=== PATIENT | female | born 1965 | race Caucasian/White ===

== ENCOUNTER 2020-10-17 06:55 | Emergency (ER) | payer OTHER ==
[~2020-10-17 06:55] MED LIST: AMOXICILLIN875 MG PO; BROMFED DM COU473 ML PO; ETODOLAC500 MG PO; ONDANSETRON ODT4 MG PO; TESSALON PERLE100 M1 PO; ULTRAM50 MG PO
[2020-10-17] MEDS ORDERED: ONDANSETRON ODT4 MG PO (08:39)
== END 2020-10-17 09:13 | disposition home or self-care (01) ==
LOC: FER 06:55
DX: B34.9 Viral infection, unspecified (principal)
CPT/HCPCS: 99283; Q0164